=== PATIENT | female | born 1955 | race Caucasian/White ===

== ENCOUNTER 2016-04-29 07:49 | Emergency (ER) | payer OTHER ==
[2016-04-29 08:08] VITALS: BP 126/58
--- NOTE | 2016-04-29 08:33 | UC ---
Throat Pain/Nasal Gunnar HPI - HPI Summary HPI Summary: 60 yo female with swollen right cervical LN x 2-3 days no f/c no URI symptoms or sore throat no skin rash has been seen by a couple of ENTs re left side LNs has been biopsied - History of Current Complaint Chief Complaint: UCSkin Stated Complaint: SWOLLEN NECK RIGHT SIDE Time Seen by Provider: 04/29/16 08:12 Hx Obtained From: Patient Hx Last Menstrual Period: n/a Onset/Duration: Gradual Onset, Lasting Days Severity: Mild Pain Intensity: 4 Pain Scale Used: 0-10 Numeric Cough: None Associated Signs & Symptoms: Positive: Negative - Allergies/Home Medications Allergies/Adverse Reactions: Allergies Allergy/AdvReac Type Severity Reaction Status Date / Time No Known Allergies Allergy Verified 04/29/16 07:59 PMH/Surg Hx/FS Hx/Imm Hx Endocrine History Of: Reports: Diabetes Cardiovascular History Of: Reports: Cardiac Disorders - PE, Hypertension Denies: Pacemaker/ICD Respiratory History Of: Reports: Pneumonia GI/ History Of: Denies: Renal Disease - Surgical History Surgical History: Yes Surgery Procedure, Year, and Place: [facility]Sections, [place]; Cholecyctectomy, - Family History Known Family History: Positive: Hypertension Negative: Respiratory Disease - Social History Alcohol Use: None Substance Use Type: None Smoking Status (MU): Never Smoked Tobacco - Immunization History Most Recent Influenza Vaccination: Not the Season Review of Systems Constitutional: Negative Skin: Negative Eyes: Negative ENT: Negative Respiratory: Negative Cardiovascular: Negative Gastrointestinal: Negative Genitourinary: Negative Motor: Negative Neurovascular: Negative Musculoskeletal: Negative Neurological: Negative Psychological: Negative All Other Systems Reviewed And Are Negative: Yes Physical Exam Triage Information Reviewed: Yes Appearance: Well-Appearing, No Pain Distress, Well-Nourished Vital Signs: Initial Vital Signs Temp 98.9 F 04/29/16 08:03 Pulse 93 04/29/16 08:03 Resp 18 04/29/16 08:03 BP 126/58 04/29/16 08:03 Pulse Ox 97 04/29/16 08:03 Vital Signs Reviewed: Yes Eyes: Positive: Conjunctiva Clear ENT: Positive: Normal ENT inspection, Pharynx normal, TMs normal. Negative: Nasal drainage, Tonsillar swelling, Tonsillar exudate, Trismus, Muffled/hoarse voice, Other: Dental Exam: Normal Neck: Positive: Supple, Enlarged Nodes @ - right cervicval LN tender/swollenn no overlying erthyema Respiratory: Positive: Lungs clear, Normal breath sounds, No respiratory distress Cardiovascular: Positive: No Murmur, Pulses Normal Abdomen Description: Positive: Nontender, No Organomegaly, Soft. Negative: CVA Tenderness (R), CVA Tenderness (L), Hernia @, Hepatomegaly, McBurney's Point Tenderness, Peritoneal Signs Musculoskeletal: Positive: Strength Intact, ROM Intact Neurological: Positive: Alert Psychological Exam: Normal Skin Exam: Normal Throat Pain/Nasal Course/Dx - Differential Dx/Diagnosis Provider Diagnoses: right anterior cervical lymphadenopathy Discharge - Discharge Plan Condition: Stable Disposition: HOME Patient Education Materials: Lymphadenopathy (ED) Referrals: Gwendolyn Garcia MD [Primary Care Provider] - If Needed Additional Instructions: I suggest you see your ENT about your swollen gland (if it does not resolve in a couple of weeks) heat tylenol
== END 2016-04-29 08:42 | disposition home or self-care (01) ==
LOC: UCCORT 07:49
DX: R59.0 Localized enlarged lymph nodes (principal)
CPT/HCPCS: 99211; G0463

== ENCOUNTER 2017-03-18 09:24 | Emergency (ER) | payer BC, OTHER ==
--- NOTE | 2017-03-18 10:10 | UC ---
Throat Pain/Nasal Gunnar HPI - HPI Summary HPI Summary: 61 year old female presents with complains sore throat , cough and post nasal drip. - History of Current Complaint Stated Complaint: SINUS/CONGESTION Time Seen by Provider: 03/18/17 10:10 Hx Obtained From: Patient Hx Last Menstrual Period: n/a Onset/Duration: Sudden Onset Severity: Moderate Cough: Nonproductive Associated Signs & Symptoms: Positive: Negative - Epiglottits Risk Factors Epiglottis Risk Factors: Negative - Allergies/Home Medications Allergies/Adverse Reactions: Allergies Allergy/AdvReac Type Severity Reaction Status Date / Time No Known Allergies Allergy Verified 03/18/17 10:31 Home Medications: Home Medications predniSONE TAB* [Deltasone TAB*] 15 mg PO DAILY 03/18/17 [History Confirmed 04/04] PMH/Surg Hx/FS Hx/Imm Hx Previously Healthy: Yes - Surgical History Surgical History: Yes Surgery Procedure, Year, and Place: C-Sections, 1986 1992, [place]; Cholecyctectomy, - Family History Known Family History: Positive: Hypertension Negative: Respiratory Disease - Social History Alcohol Use: None Substance Use Type: None Smoking Status (MU): Never Smoked Tobacco - Immunization History Most Recent Influenza Vaccination: Not the 2014/2015 Season Review of Systems Constitutional: Negative Skin: Negative Eyes: Negative ENT: Nasal Discharge, Sinus Congestion, Sinus Pain/Tenderness Respiratory: Cough Cardiovascular: Negative Gastrointestinal: Negative Genitourinary: Negative Motor: Negative Neurovascular: Negative Musculoskeletal: Negative Neurological: Negative Psychological: Negative All Other Systems Reviewed And Are Negative: Yes Physical Exam Triage Information Reviewed: Yes Vital Signs Reviewed: Yes Eye Exam: Normal ENT: Positive: Pharyngeal erythema, Nasal congestion, Nasal drainage, Sinus tenderness Dental Exam: Normal Neck exam: Normal Neck: Positive: 1 Respiratory: Positive: Wheezing Cardiovascular Exam: Normal Abdominal Exam: Normal Musculoskeletal Exam: Normal Neurological Exam: Normal Psychological Exam: Normal Skin Exam: Normal Throat Pain/Nasal Course/Dx - Differential Dx/Diagnosis Provider Diagnoses: sinus congestion. post nasal drip cough Discharge - Discharge Plan Condition: Stable Disposition: HOME Prescriptions: Azithromyxin ALEX (NF) [Z-Alex (Zithromax) 250 mg tabs #6] 2 tab PO .TODAY, THEN 1 DAILY #6 tab LoraTADine TAB(NF) [Claritin 10 MG TAB(NF)] 10 mg PO DAILY #30 tab Patient Education Materials: Sinusitis (ED) Referrals: Gwendolyn Garcia MD [Primary Care Provider] -
[2017-03-18 10:38] VITALS: BP 149/45
== END 2017-03-18 10:48 | disposition home or self-care (01) ==
LOC: UCCORT 09:24
DX: R09.81 Nasal congestion (principal); R09.82 Postnasal drip; R05 Cough; Z90.49 Acquired absence of other specified parts of digestive tract
CPT/HCPCS: 99212; G0463

== ENCOUNTER 2017-09-07 15:51 | Emergency (ER) | payer BC ==
[2017-09-07 16:19] VITALS: BP 142/57
--- NOTE | 2017-09-07 17:50 | UC ---
Complaint Female HPI - HPI Summary HPI Summary: PATIENT COMPLAINS OF SEVERAL WEEKS OF URINARY FREQUENCY AND URGENCY. STATES SHE HAS TO GO VERY OFTEN AND CAN BARELY MAKE IT TO THE BATHROOM AND THEN VOIDS A LARGE VOLUME OF URINE BUT HAS A SENSATION OF INCOMPLETE VOIDING. NO DYSURIA OR ABDOMINAL PAIN. NO FEVER, NAUSEA, BACK PAIN. ADMITS THAT HER DIABETES IS UNCONTROLLED. FASTING GLUCOSE THIS MORNING OF 190. LAST A1C SHE THINKS WAS 8.8. - History Of Current Complaint Chief Complaint: UCGU Stated Complaint: URINARY Time Seen by Provider: 09/07/17 17:16 Hx Obtained From: Patient Hx Last Menstrual Period: n/a Onset/Duration: Gradual Onset, Lasting Weeks, Still Present Timing: Constant Severity Initially: Moderate Severity Currently: Moderate Pain Intensity: 0 Pain Scale Used: 0-10 Numeric Character: Not Applicable Aggravating Factor(s): Nothing Alleviating Factor(s): Nothing Associated Signs And Symptoms: Negative: Fever, Back Pain, Nausea - Allergies/Home Medications Allergies/Adverse Reactions: Allergies Allergy/AdvReac Type Severity Reaction Status Date / Time No Known Allergies Allergy Verified 03/18/17 10:31 Home Medications: Home Medications Amlodipine Besylate [Norvasc 10 mg tab] 10 mg PO DAILY 09/07/17 [History Confirmed 09/07/17] Methotrexate TAB* 10 mg PO WEEKLY 09/07/17 [History Confirmed 09/07/17] PMH/Surg Hx/FS Hx/Imm Hx - Additional Past Medical History Additional PMH: PMR - ON HOME OXYGEN FOR "BREATHLESNESS" Endocrine History: Diabetes Cardiovascular History: Hypertension - Surgical History Surgical History: Yes Surgery Procedure, Year, and Place: [facility], [place]; Cholecyctectomy, - Family History Known Family History: Positive: Hypertension Negative: Diabetes, Respiratory Disease - Social History Alcohol Use: None Substance Use Type: None Smoking Status (MU): Never Smoked Tobacco - Immunization History Most Recent Influenza Vaccination: Not the Season Review of Systems Constitutional: Negative Skin: Negative Respiratory: Negative Cardiovascular: Negative Gastrointestinal: Negative Genitourinary: Frequency, Urgency All Other Systems Reviewed And Are Negative: Yes Physical Exam Triage Information Reviewed: Yes Appearance: Well-Appearing, No Pain Distress, Well-Nourished, Obese Vital Signs: Initial Vital Signs Temp 98.2 F 09/07/17 16:11 Pulse 102 09/07/17 16:11 Resp 20 09/07/17 16:11 BP 142/57 09/07/17 16:11 Pulse Ox 97 09/07/17 16:11 Vital Signs Reviewed: Yes Eyes: Positive: Conjunctiva Clear ENT: Positive: Hearing grossly normal Neck: Positive: Supple Respiratory: Positive: No respiratory distress, No accessory muscle use Cardiovascular: Positive: Pulses Normal Abdomen Description: Positive: Soft Musculoskeletal: Positive: No Edema Neurological: Positive: Alert Psychological: Positive: Age Appropriate Behavior Skin: Negative: rashes Diagnostics - Laboratory Diagnostic Studies Completed/Ordered: URINE DIP SP. GR. 1.015, 2+ GLUCOSE, 2+ KETONES Complaint Female Dx - Differential Dx/Diagnosis Provider Diagnoses: URINARY FREQUENCY AND URGENCY Discharge - Sign-Out/Discharge Documenting (check all that apply): Discharge/Admit/Transfer - Discharge Plan Condition: Stable Disposition: HOME Patient Education Materials: Urinary Urgency and Frequency (DC) Referrals: Gwendolyn Garcia MD [Primary Care Provider] - 2 Weeks Additional Instructions: YOUR URINE TEST IS POSITIVE FOR GLUCOSE AND KETONES WHICH IS CONSISTENT WITH YOUR KNOWN UNCONTROLLED DIABETES. URINARY FREQUENCY CAN BE A SYMPTOM OF UNCONTROLLED DIABETES. NO UTI SUGGESTED TODAY. FOLLOW-UP WITH YOUR PCP AND GO TO THE ED WITHOUT FAIL IF YOUR SYMPTOMS WORSEN. WE HAVE SENT YOUR URINE FOR CULTURE JUST TO BE SURE THERE IS NO INFECTION AND WE WILL CALL YOU IF WE NEED TO CHANGE YOUR MANAGEMENT. - Billing Disposition and Condition Condition: STABLE Disposition: Home
--- NOTE | 2017-09-09 15:30 | UC ---
- Progress Note Progress Note: culture no growth no change [facility] [place] 09/09/3017 Discharge - Sign-Out/Discharge Documenting (check all that apply): Post-Discharge Follow Up - Discharge Plan Condition: Stable Disposition: HOME Patient Education Materials: Urinary Urgency and Frequency (DC) Referrals: Gwendolyn Garcia MD [Primary Care Provider] - 2 Weeks Additional Instructions: YOUR URINE TEST IS POSITIVE FOR GLUCOSE AND KETONES WHICH IS CONSISTENT WITH YOUR KNOWN UNCONTROLLED DIABETES. URINARY FREQUENCY CAN BE A SYMPTOM OF UNCONTROLLED DIABETES. NO UTI SUGGESTED TODAY. FOLLOW-UP WITH YOUR PCP AND GO TO THE ED WITHOUT FAIL IF YOUR SYMPTOMS WORSEN. WE HAVE SENT YOUR URINE FOR CULTURE JUST TO BE SURE THERE IS NO INFECTION AND WE WILL CALL YOU IF WE NEED TO CHANGE YOUR MANAGEMENT. - Billing Disposition and Condition Condition: STABLE Disposition: Home
== END 2017-09-07 17:48 | disposition home or self-care (01) ==
LOC: UCCORT 15:51
DX: R35.0 Frequency of micturition (principal); E11.65 Type 2 diabetes mellitus with hyperglycemia; R39.15 Urgency of urination; Z99.81 Dependence on supplemental oxygen
CPT/HCPCS: 81003; 87086; 99211; G0463

== ENCOUNTER 2018-11-20 11:40 | Emergency (ER) | payer BC ==
[2018-11-20 12:28] VITALS: BP 141/46
--- NOTE | 2018-11-20 13:01 | UC ---
Complaint Female HPI - HPI Summary HPI Summary: Pt presents with c/o sudden onset of urinary frequency and hematuria X 2-3 days. Pt states that she feels that she is in a "fog' and is unable to think clearly. She states that she had a similar incident such as this in June 2018 and was diagnosed with a UTI. - History Of Current Complaint Chief Complaint: UCGU Stated Complaint: URINARY Time Seen by Provider: 11/20/18 12:32 Hx Obtained From: Patient Hx Last Menstrual Period: n/a ?: No Onset/Duration: Sudden Onset, Lasting Days, Still Present Timing: Constant Severity Initially: Mild Severity Currently: Mild Pain Intensity: 0 Character: Dull Aggravating Factor(s): Urination Alleviating Factor(s): Nothing Associated Signs And Symptoms: Positive: Negative - Risk Factors Ectopic Risk Factor: Negative Ovarian Torsion Risk Factor: Negative - Allergies/Home Medications Allergies/Adverse Reactions: Allergies Allergy/AdvReac Type Severity Reaction Status Date / Time No Known Allergies Allergy Verified 11/20/18 12:15 Home Medications: Home Medications Nebivolol HCl [Bystolic] 2.5 mg PO DAILY 11/20/18 [History Confirmed 11/20/18] predniSONE [Prednisone 5 MG TAB] 5 mg PO DAILY 11/20/18 [History Confirmed 11/20] PMH/Surg Hx/FS Hx/Imm Hx Previously Healthy: Yes Cardiovascular History: Cardiac Disease, Hypertension - Surgical History Surgical History: Yes Surgery Procedure, Year, and Place: [place]Se[place], [place]; Cholecyctectomy, - Family History Known Family History: Positive: Hypertension Negative: Diabetes, Respiratory Disease - Social History Occupation: Retired Lives: With Family Alcohol Use: None Substance Use Type: None Smoking Status (MU): Never Smoked Tobacco Have You Smoked in the Last Year: No - Immunization History Most Recent Influenza Vaccination: Not the 2014/2015 Season Review of Systems All Other Systems Reviewed And Are Negative: Yes Constitutional: Positive: Negative Skin: Positive: Negative Eyes: Positive: Negative ENT: Positive: Negative Respiratory: Positive: Negative Cardiovascular: Positive: Negative Gastrointestinal: Positive: Negative Genitourinary: Positive: Hematuria, Frequency Motor: Positive: Negative Neurovascular: Positive: Negative Musculoskeletal: Positive: Negative Neurological: Positive: Negative Psychological: Positive: Negative Is Patient Immunocompromised?: No Physical Exam Triage Information Reviewed: Yes Appearance: Well-Appearing, Obese Vital Signs: Initial Vital Signs Temp 99.1 F 11/20/18 12:20 Pulse 70 11/20/18 12:20 Resp 20 11/20/18 12:20 BP 141/46 11/20/18 12:20 Pulse Ox 96 11/20/18 12:20 Vital Signs Reviewed: Yes Eye Exam: Normal ENT: Positive: Hearing grossly normal Dental Exam: Normal Neck exam: Normal Respiratory: Positive: Normal breath sounds Cardiovascular Exam: Normal Abdominal Exam: Normal Musculoskeletal Exam: Normal Neurological Exam: Normal Psychological Exam: Normal Skin Exam: Normal Complaint Female Dx - Course Course Of Treatment: I discussed with the pt the need to follow up with her PCP as soon as possible. Pt verbalized understanding and agreed to plan of care. - Differential Dx/Diagnosis Differential Diagnosis/HQI/PQRI: Urinary Tract Infection Provider Diagnosis: Hematuria Discharge ED - Sign-Out/Discharge Documenting (check all that apply): Patient Departure All imaging exams completed and their final reports reviewed: No Studies - Discharge Plan Condition: Stable Disposition: HOME Prescriptions: Nitrofurantoin Monohyd/M-Cryst [Macrobid 100 mg Capsule] 100 mg PO Q12H #14 cap Patient Education Materials: Hematuria (ED) Referrals: Willow Isidro PA [Primary Care Provider] - As Soon As Possible Additional Instructions: Please follow up with your PCP as soon as possible. - Billing Disposition and Condition Condition: STABLE Disposition: Home
== END 2018-11-20 13:07 | disposition home or self-care (01) ==
LOC: UCCORT 11:40
DX: R31.9 Hematuria, unspecified (principal); Z87.440 Personal history of urinary (tract) infections; I10 Essential (primary) hypertension
CPT/HCPCS: 81003; 87086; 99212; G0463